=== PATIENT | female | born 1965 | race Hispanic/Latino ===

== ENCOUNTER 2018-09-08 01:25 | Emergency (ER) | payer OTHER ==
[2018-09-08 02:16] LABS: APPEARANCE,URINE Clear (CLEAR); BILIRUBIN,URINE Negative (NEGATIVE); COLOR,URINE Yellow (YELLOW); GLUCOSE, URINE (UA) >=1000 mg/dL (NEGATIVE); KETONES,URINE Negative (NEGATIVE); LEUKOCYTE ESTERASE ,URINE Small (NEGATIVE); NITRATE,URINE Negative (NEGATIVE); OCCULT BLOOD,URINE Small (NEGATIVE); PROTEIN,URINE Negative (NEGATIVE)
[2018-09-08 02:28] LABS: BASOPHILS % (AUTO) 0.8 % (0.0-5.0); EOSINOPHILS % (AUTO) 1.6 % (0.0-8.0); HEMATOCRIT 44.1 % (36-48); LYMPHOCYTES % (AUTO) 23.8 % (21.0-51.0); MEAN CORPUSCULAR HEMOGLOBIN 29.4 pg (27.0-33.0); MEAN CORPUSCULAR HGB CONC 34.5 g/dL (32.0-36.0); MEAN CORPUSCULAR VOLUME 85.2 fL (79-99); MONOCYTES % (AUTO) 5.7 % (3.0-13.0); NEUTROPHILS % (AUTO) 68.1 % (40.0-77.0); NUCLEATED RED BLOOD CELLS 0.2 % (0.0-0.19); PLATELET COUNT (AUTO) 287 K/uL (130-400); RED BLOOD CELL COUNT(AUTO) 5.18 MIL/uL (4.00-5.50); RED CELL DISTRIBUTION WIDTH 13.6 % (11.0-15.5); WHITE BLOOD COUNT (AUTO) 11.4 K/uL (4.8-10.8)
[2018-09-08 02:33] LABS: BACTERIA,URINE Few /HPF (None Seen); YEAST,URINE BUDDING Moderate /HPF (None Seen)
[2018-09-08 02:40] LABS: ALBUMIN 3.6 g/dL (3.5-5.0); BILIRUBIN,TOTAL 0.8 mg/dL (0.2-1.0); CREATININE 0.7 mg/dL (0.5-1.5); POTASSIUM 3.2 mmol/L (3.5-5.1); TOTAL PROTEIN, SERUM 7.7 g/dL (6.0-8.3)
[2018-09-08] MEDS ORDERED: POTASSIUM CHLORIDE 10% ELIXIR 20 MEQ/15 ML UDCUP ONE (03:01)
[2018-09-08] MEDS ORDERED: INSULIN HUMULIN R 100 UNIT/ML 3ML ONE (03:02)
[2018-09-08] MEDS ORDERED: POTASSIUM CHLORIDE 20 MEQ ERTAB PO ONE (03:05)
[2018-09-08] MEDS ORDERED: ACETAMINOPHEN EXTRA STRENGTH 500 MG TABLET ONE (03:19)
[2018-09-08] MEDS ORDERED: CEFTRIAXONE SODIUM 1 GM ONE (03:19)
== END 2018-09-08 05:56 | disposition home or self-care (01) ==
LOC: EDH 01:25
DX: N30.00 Acute cystitis without hematuria (principal); E11.65 Type 2 diabetes mellitus with hyperglycemia; E87.6 Hypokalemia; M54.41 Lumbago with sciatica, right side; Z79.4 Long term (current) use of insulin; Z90.710 Acquired absence of both cervix and uterus
CPT/HCPCS: 36415; 80053; 81001; 82948; 85025; 87088; 96361; 96374; 96375; 99283; J0696; J1815

== ENCOUNTER 2020-05-04 15:15 | Inpatient (IN) | payer OTHER ==
[~2020-05-04] VITALS: Ht 154.9 cm; Wt 42.2 kg
[2020-05-04 15:47] LABS: BASOPHILS % (AUTO) 0.6 % (0.0-5.0); EOSINOPHILS % (AUTO) 0.4 % (0.0-8.0); HEMATOCRIT 34.9 % (36-48); LYMPHOCYTES % (AUTO) 5.6 % (21.0-51.0); MEAN CORPUSCULAR HEMOGLOBIN 26.9 pg (27.0-33.0); MEAN CORPUSCULAR HGB CONC 33.8 g/dL (32.0-36.0); MEAN CORPUSCULAR VOLUME 79.5 fL (79-99); MONOCYTES % (AUTO) 3.8 % (3.0-13.0); PLATELET COUNT (AUTO) 349 K/uL (130-400); RED BLOOD CELL COUNT(AUTO) 4.39 MIL/uL (4.00-5.50); RED CELL DISTRIBUTION WIDTH 12.6 % (11.0-15.5)
[2020-05-04 16:03] LABS: INR 0.92 (0.85-1.15); PARTIAL THROMBOPLASTIN TIME 31.3 SEC (26.3-35.5)
[2020-05-04] MEDS ORDERED: ONDANSETRON HCL 4 MG/2 ML VIAL ONE (16:42)
[2020-05-04] MEDS ORDERED: SODIUM CHLORIDE 0.9% 1000ML 1,000 ML IV ONE (16:43)
[2020-05-04] MEDS ORDERED: SODIUM CHLORIDE 0.9% 250 ML IV ONE (16:43)
[2020-05-04] MEDS ORDERED: HYDRALAZINE HCL 20 MG/ML VIAL IV PRN (16:45)
[2020-05-04] MEDS ORDERED: ONDANSETRON HCL 4 MG/2 ML VIAL IVP PRN (16:45)
[2020-05-04] MEDS ORDERED: ACETAMINOPHEN 325 MG TAB PO PRN (16:45)
[2020-05-04] MEDS ORDERED: ACETAMINOPHEN-CODEINE 300/30MG TAB PO PRN (16:45)
[2020-05-04 16:47] LABS: ASPARTATE AMINOTRANSFERASE 7 U/L (10-37); BILIRUBIN,TOTAL 0.6 mg/dL (0.2-1.0); CARBON DIOXIDE 26 mmol/L (21-32); CREATINE KINASE, TOTAL 14 U/L (21-232); CREATININE 1.2 mg/dL (0.5-1.5); GLOMERULAR FILTR. RATE CALC 50 mL/min (>60); MYOGLOBIN 26 ng/mL (10-92); SODIUM SERUM 124 mmol/L (136-145); TOTAL PROTEIN, SERUM 8.1 g/dL (6.0-8.3); TROPONIN I < 0.04 ng/mL (0.00-0.06); UREA NITROGEN, BLOOD 6 mg/dL (7-18)
[2020-05-04 16:49] LABS: ALANINE AMINOTRANSFERASE < 6 U/L (12-78)
[2020-05-04 16:50] LABS: POTASSIUM 1.7 mmol/L (3.5-5.1)
[2020-05-04 16:51] LABS: CHLORIDE 84 mmol/L (101-111); GLUCOSE,RANDOM 547 mg/dL (70-105)
[2020-05-04] MEDS ORDERED: POTASSIUM BICARB/CIT AC 25 MEQ TABLET.EFF ONE (17:00)
[2020-05-04] MEDS ORDERED: ZOSYN 3.375GM+NS 50ML 50 ML IV ONE (17:00)
[2020-05-04] MEDS ORDERED: POTASSIUM CHLORIDE 20MEQ/100ML 100 ML IV ONE (17:00)
[2020-05-04] MEDS ORDERED: INSULIN HUMULIN R 100 UNIT/ML 3ML ONE (17:19)
[2020-05-04] MEDS ORDERED: VANCOMYCIN 1GM+NS 250ML 250 ML IV ONE (18:00)
[2020-05-04 18:20] VITALS: BP 107/72
[2020-05-04] MEDS ORDERED: GLUCAGON 1MG KIT 1 MG ML IM PRN (19:30)
[2020-05-04] MEDS ORDERED: DEXTROSE 50%-WATER 50 ML DISP.SYRIN IV PRN (19:30)
[2020-05-04] MEDS ORDERED: SULF1TAB89 PO (19:39)
[2020-05-04] MEDS ORDERED: LEVO88TA7 PO (19:39)
[2020-05-04] MEDS ORDERED: INSLAN SQ (19:40)
[2020-05-04] MEDS ORDERED: POTASSIUM CHLORIDE 10% ELIXIR 20 MEQ/15 ML UDCUP PO PRN (19:45)
[2020-05-04] MEDS ORDERED: POTASSIUM CHLORIDE 20 MEQ ERTAB PO PRN (19:45)
[2020-05-04] MEDS ORDERED: VANCOMYCIN PROTOCOL PER PHARMACY IV SCH (20:00)
[2020-05-04] MEDS: NS-20 MEQ KCL 1000ML 1,000 ML IV SCH (20:08)
[2020-05-04] MEDS ORDERED: VANCOMYCIN 750MG + NS 250 ML IV ONE ×2 (20:30)
[2020-05-04] MEDS ORDERED: COMPOUND IV REFRIGERATED 1 EACH IVSOLN MISC PRN (20:30)
--- NOTE | 2020-05-04 20:53 | NUR ---
ROUND DR. APONTE HERE AT BEDSIDE, TO CLEAN WOUND LEFT FOOT, CULTURE OBTAINED TO LEFT FOOT WOUND BY DR. APONTE, LABELED AND SENT TO LAB
--- NOTE | 2020-05-04 21:00 | NUR ---
abnormal lab consult dr. sarmiento in the am per dr. de la cruz, per dr. de la cruz he already called dr. sarmiento himself, informed dr de la cruz K+ level was 1.7 on admission and repeat 2.7, will continue to cover per protocal
[2020-05-04 21:01] LABS: CREATININE 1.1 mg/dL (0.5-1.5)
[2020-05-04] MEDS: MORPHINE SULFATE 2 MG/ML 1ML SYG IVP PRN (21:01)
[2020-05-04 21:04] LABS: POTASSIUM 2.7 mmol/L (3.5-5.1)
[2020-05-04] MEDS: INSULIN HUMULIN R 100 UNIT/ML 3ML SQ SCH (21:15)
[2020-05-04] MEDS: POTASSIUM CHLORIDE 20MEQ/100ML 100 ML IV PRN (21:26)
[2020-05-04] MEDS: LIDOCAINE HCL-MPF 1% 2ML VIAL IV PRN (21:26)
[2020-05-04 23:53] VITALS: BP 99/67
[2020-05-05] MEDS: POTASSIUM CHLORIDE 20MEQ/100ML 100 ML IV PRN ×2 (00:56→06:15)
[2020-05-05] MEDS: LIDOCAINE HCL-MPF 1% 2ML VIAL IV PRN ×2 (00:57→06:15)
[2020-05-05] MEDS: MAGNESIUM 2GM PREMIX 50ML 50 ML IV PRN (01:12)
[2020-05-05] MEDS: MORPHINE SULFATE 2 MG/ML 1ML SYG IVP PRN ×2 (03:40→22:13)
[2020-05-05 04:00] VITALS: BP 99/66
[2020-05-05 04:02] LABS: APPEARANCE,URINE Cloudy (CLEAR); BILIRUBIN,URINE Negative (NEGATIVE); COLOR,URINE Yellow (YELLOW); GLUCOSE, URINE (UA) >=1000 mg/dL (NEGATIVE); KETONES,URINE >=80 mg/dL (NEGATIVE); LEUKOCYTE ESTERASE ,URINE Moderate (NEGATIVE); NITRATE,URINE Positive (NEGATIVE); OCCULT BLOOD,URINE Trace (NEGATIVE); PROTEIN,URINE POS 1+ mg/dL (NEGATIVE); UROBILINOGEN,URINE 0.2 mg/dL (0.2-1.0)
[2020-05-05 04:17] LABS: BACTERIA,URINE Few /HPF (None Seen); MUCUS,URINE Few LPF (None Seen); SQUAMOUS EPITHELIAL CELL,UR Few /HPF (0-2); WBC,URINE 26-50 /HPF (0-1)
[2020-05-05 05:33] LABS: BASOPHILS % (AUTO) 0.6 % (0.0-5.0); EOSINOPHILS % (AUTO) 0.9 % (0.0-8.0); HEMATOCRIT 29.7 % (36-48); LYMPHOCYTES % (AUTO) 11.1 % (21.0-51.0); MEAN CORPUSCULAR HEMOGLOBIN 26.9 pg (27.0-33.0); MEAN CORPUSCULAR HGB CONC 34.7 g/dL (32.0-36.0); MEAN CORPUSCULAR VOLUME 77.5 fL (79-99); MONOCYTES % (AUTO) 5.9 % (3.0-13.0); NEUTROPHILS % (AUTO) 80.6 % (40.0-77.0); PLATELET COUNT (AUTO) 279 K/uL (130-400); RED BLOOD CELL COUNT(AUTO) 3.83 MIL/uL (4.00-5.50); RED CELL DISTRIBUTION WIDTH 12.4 % (11.0-15.5); WHITE BLOOD COUNT (AUTO) 19.9 K/uL (4.8-10.8)
[2020-05-05] MEDS: INSULIN HUMULIN R 100 UNIT/ML 3ML SQ SCH ×4 (05:41→20:59)
[2020-05-05 06:02] LABS: ALBUMIN 1.7 g/dL (3.5-5.0); ASPARTATE AMINOTRANSFERASE 7 U/L (10-37); BILIRUBIN,TOTAL 0.2 mg/dL (0.2-1.0); CARBON DIOXIDE 31 mmol/L (21-32); CHLORIDE 95 mmol/L (101-111); CREATININE 0.9 mg/dL (0.5-1.5); GLOMERULAR FILTR. RATE CALC 70 mL/min (>60); GLUCOSE,RANDOM 76 mg/dL (70-105); SODIUM SERUM 130 mmol/L (136-145); TOTAL PROTEIN, SERUM 6.9 g/dL (6.0-8.3); UREA NITROGEN, BLOOD 6 mg/dL (7-18)
[2020-05-05 06:09] LABS: ALANINE AMINOTRANSFERASE < 6 U/L (12-78)
[2020-05-05 06:10] LABS: POTASSIUM 2.8 mmol/L (3.5-5.1)
[2020-05-05 07:57] VITALS: BP 102/67
[2020-05-05] MEDS: VANCOMYCIN 500MG+NS 100ML 100 ML IV SCH ×2 (09:43→22:05)
[2020-05-05] MEDS: ENOXAPARIN SODIUM 30 MG/0.3 ML SQ SCH (09:44)
[2020-05-05] MEDS: AMILORIDE HCL 5 MG TABLET PO SCH (09:44)
[2020-05-05] MEDS: NS-20 MEQ KCL 1000ML 1,000 ML IV SCH (10:01)
[2020-05-05] MEDS ORDERED: RENAL DOSE IV SCH (10:45)
[2020-05-05 11:27] VITALS: BP 126/75
--- NOTE | 2020-05-05 12:58 | NUR ---
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 Pt has a BMI of 13.4 classified as protein energy malnutrition stage III. Pt stated her usual weight is of 94 lbs. Pt's current weight is of 70 lbs. This indicates a 75% UBW signifying severe malnutrition. 67% IBW indicating severe malnutrition. Prior to admission pt stated she was nauseated and vomiting for 1 week with poor PO intake. Pt was unable to define when unintentional weight loss started. When RD visited, pt was starting to eat lunch tray. Pt was noted to be weak and needed assistance with opening condiment packages. Pt has signs of moderate-severe malnutrition as evidence of nutrition focused physical assessment of moderate-severe muscle and fat wasting, as well as %UBW, and %IBW. RD RECOMMENDATION: 75 gm CC diet. BG on admission were of 547. Monitor BG. Glucerna TID ProMod 60 mL BID Monitor PO intake and tolerance to ONS. LABS: WBC 19.9, NA 130, K 2.8, CL 95, BUN 6, BG 74, TOT CA 7.4, MG 2.8, ALB 1.7 LBM: 05/03/20 Addendum: 05/05/20 at [address] Amended: Links added.
--- NOTE | 2020-05-05 13:00 | NUR ---
Rayne HANNA DR. TO SEE PATIENT AT BEDSIDE WILL WAIT TIL LABS ARE UNDER CONTROL
--- NOTE | 2020-05-05 15:00 | NUR ---
MET W PATIENT AT BEDSIDE FOR DC PLANNING PATIENT STATES LIVES WITH SPOUSE KATHY WHO WILL PROVIDE TRANSPORT STATES THAT PREVIOUS TO AUGUST WAS EMPLOYED WITH [employer] FOR > 20 EYARS, HAS FOOT ISSUES ON RIGHT FOOT, WAS OFF WORK, WAS FIRED AFTER [employer] RAN OUT, STATES NO COBRA OFFIERS, STATES DID NOT HAVE INSURANCE TO LOOK AFTER HER FEET, NOW HERE WITH PROBLEMS WITH OTHER FOOT, WILL NEED SPOUSE TO DO DRESSING CHANGES, WAITING ON CULTURS FOR ABX NEEDS. DCP HOME. HAC /RAFAT SKINNER ALERTED RE NEED FOR SSI/DISABLITY CASE ARMOR OFFICER STATES PATIENT VOICES FEELINGS OF DISCOURAGEMENT AND SADNESS RELATED TO DOMESTIC DISCORD. WILL F/UP - POSS SW CONSULT Addendum: 05/06/20 at 1134 by PORFIRIO WHITLOCK RN CM Amended: Links added.
[2020-05-05 15:11] LABS: HEMATOCRIT 28.6 % (36-48); MEAN CORPUSCULAR HEMOGLOBIN 27.3 pg (27.0-33.0); MEAN CORPUSCULAR HGB CONC 34.3 g/dL (32.0-36.0); MEAN CORPUSCULAR VOLUME 79.7 fL (79-99); RED BLOOD CELL COUNT(AUTO) 3.59 MIL/uL (4.00-5.50); RED CELL DISTRIBUTION WIDTH 12.8 % (11.0-15.5); WHITE BLOOD COUNT (AUTO) 18.5 K/uL (4.8-10.8)
[2020-05-05 15:27] LABS: CREATININE 0.8 mg/dL (0.5-1.5); MAGNESIUM 2.1 mg/dL (1.80-2.40); POTASSIUM 3.3 mmol/L (3.5-5.1)
[2020-05-05 15:52] VITALS: BP 112/73
--- NOTE | 2020-05-05 16:18 | NUR ---
DR. GUS V CAME TO SEE PATIENT AT BEDSIDE AND SPOKE TO PATIENT ABOUT PROCEDURE OF LEFT FOOT AMPUTATION. HOWEVER, PATIENT WANTED TO THINK ABOUT LEFT FOOT BEING AMPUTATED. DR. WEBER WILL WAIT ON PATIENT DECISION.
[2020-05-05 20:40] VITALS: BP 111/69
[2020-05-05] MEDS: NYSTATIN-TRIAMCINOLONE CREAM 15 GM TP SCH (21:00)
[2020-05-05 23:05] VITALS: BP 127/79
[2020-05-06] MEDS: NS-20 MEQ KCL 1000ML 1,000 ML IV SCH ×2 (00:23→11:42)
[2020-05-06 03:07] VITALS: BP 92/59
[2020-05-06 05:32] LABS: MEAN CORPUSCULAR HEMOGLOBIN 26.7 pg (27.0-33.0); MEAN CORPUSCULAR HGB CONC 33.1 g/dL (32.0-36.0); MEAN CORPUSCULAR VOLUME 80.6 fL (79-99); RED BLOOD CELL COUNT(AUTO) 3.6 MIL/uL (4.00-5.50); RED CELL DISTRIBUTION WIDTH 13.1 % (11.0-15.5); WHITE BLOOD COUNT (AUTO) 15.3 K/uL (4.8-10.8)
[2020-05-06 05:45] LABS: CREATININE 0.7 mg/dL (0.5-1.5); MAGNESIUM 1.9 mg/dL (1.80-2.40); POTASSIUM 3.7 mmol/L (3.5-5.1)
[2020-05-06] MEDS: INSULIN HUMULIN R 100 UNIT/ML 3ML SQ SCH ×6 (06:19→21:39)
--- NOTE | 2020-05-06 06:44 | NUR ---
DR. FAY APONTE IN TO SEE PATIENT AND CHANGE WOUND DRESSING OF LEFT FOOT. DR. APONTE EXPLAINED TO PATIENT THAT HER WOUND WOULD NOT LIKELY HEAL DUE TO LACK OF CIRCULATION TO LEFT LOWER LEG AND RISK OF INFECTION SPREADING. 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 DR. WEBER'S OFFICE PAGED TO NOTIFY HIM THAT PATIENT AGREED TO HAVE OPERATION. OFFICE STATED THEY WOULD NOTIFY HIM DURING OFFICE HOURS BECAUSE DR. WEBER WAS NOT INTERIOR WALL ASSEMBLER. WILL ASK ONCOMING NURSE TO FOLLOW UP
--- NOTE | 2020-05-06 07:43 | NUR ---
CALL BACK FROM DR. WEBER RECEIVED CALL BACK FROM DR. GUS MD MADE AWARE THAT PATIENT NOW AGREES TO HAVE LEFT BELOW THE KNEE AMPUTATION. STATED TO SCHEDULE PROCEDURE FOR 05/07/20.
[2020-05-06 08:00] VITALS: BP 91/64
[2020-05-06] MEDS: AMILORIDE HCL 5 MG TABLET PO SCH ×2 (09:00→09:08)
[2020-05-06] MEDS: ENOXAPARIN SODIUM 30 MG/0.3 ML SQ SCH ×2 (09:00→09:08)
[2020-05-06] MEDS: NYSTATIN-TRIAMCINOLONE CREAM 15 GM TP SCH ×2 (09:00→21:39)
[2020-05-06] MEDS: VANCOMYCIN 500MG+NS 100ML 100 ML IV SCH ×2 (09:09→21:26)
--- NOTE | 2020-05-06 09:15 | NUR ---
Surgery scheduled for tomorrow AM Pt NPO. Pills held this am. Lovenox held for pending surgery tomorrow AM
[2020-05-06] MEDS ORDERED: DRONABINOL 2.5 MG CAP PO SCH (10:00)
[2020-05-06] MEDS ORDERED: RENAL DOSE IV SCH (10:00)
[2020-05-06] MEDS: ZINC SULFATE 220 CAPSULE PO SCH (10:30)
[2020-05-06] MEDS: ASCORBIC ACID 500 MG TAB PO SCH (10:30)
[2020-05-06] MEDS: THIAMINE HCL 100 MG/ML 2ML VIAL IVP SCH (10:49)
--- NOTE | 2020-05-06 11:43 | NUR ---
PT NPO FOR CTA
[2020-05-06 12:00] VITALS: BP 93/63
[2020-05-06] MEDS ORDERED: IOHEXOL-350 50ML VIAL IV ONE (12:52)
[2020-05-06] MEDS ORDERED: IOHEXOL-350 75 ML VIAL IV ONE (12:53)
--- NOTE | 2020-05-06 13:02 | NUR ---
PT TO CTA AT THIS TIME. NAD
[2020-05-06] MEDS: ZOSYN 3.375GM+NS 50ML 50 ML IV SCH ×2 (13:52→21:26)
--- NOTE | 2020-05-06 14:10 | NUR ---
CLARIFICATION OF PRIMARY PHYSICIAN T/C PLACED TO DR. PINEDA'S OFFICE SPOKE WITH ISSAC, INFORMED HER THAT PATIENT STATES SHE SAW DR. PINEDA IN AUGUST AND WANTS TO CONTINUE TO SEE HIM HER PRIMARY PHYSICIAN.
[2020-05-06 16:00] VITALS: BP 121/79
[2020-05-06 19:30] VITALS: BP 103/66
[2020-05-06] MEDS ORDERED: DRONABINOL 2.5 MG CAP PO ONE (21:00)
[2020-05-06] MEDS: INSULIN GLARGINE 100 UNITS/ML 10 ML VIAL SQ SCH (21:37)
[2020-05-06] MEDS: MORPHINE SULFATE 2 MG/ML 1ML SYG IVP PRN (21:55)
[2020-05-06 23:45] VITALS: BP 95/65
[2020-05-07] VITALS (16 sets, daily range): BP systolic 89–136; BP diastolic 54–78
[2020-05-07] MEDS: NS-20 MEQ KCL 1000ML 1,000 ML IV SCH ×2 (00:50→12:53)
--- NOTE | 2020-05-07 05:08 | NUR ---
PATIENT RESTING IN BED. TOLERATING IV ABX WELL. NO RESPIRATORY DISTRESS NOTED. DID C/O PAIN TO LLE. MEDICATED ONCE WITH ORDERED PAIN MED. PATIENT IS NPO FOR BKA IN AM. WILL CONTINUE TO MONITOR.
[2020-05-07] MEDS: INSULIN HUMULIN R 100 UNIT/ML 3ML SQ SCH ×7 (06:05→20:45)
[2020-05-07] MEDS: ZOSYN 3.375GM+NS 50ML 50 ML IV SCH (06:15)
[2020-05-07] MEDS: LEVOTHYROXINE 50 MCG TABLET PO SCH (06:16)
[2020-05-07 06:22] LABS: BASOPHILS % (AUTO) 0.3 % (0.0-5.0); EOSINOPHILS % (AUTO) 0.7 % (0.0-8.0); HEMATOCRIT 27.3 % (36-48); LYMPHOCYTES % (AUTO) 17.6 % (21.0-51.0); MEAN CORPUSCULAR HEMOGLOBIN 26.8 pg (27.0-33.0); MEAN CORPUSCULAR VOLUME 81.3 fL (79-99); MONOCYTES % (AUTO) 6.8 % (3.0-13.0); PLATELET COUNT (AUTO) 234 K/uL (130-400); RED BLOOD CELL COUNT(AUTO) 3.36 MIL/uL (4.00-5.50); RED CELL DISTRIBUTION WIDTH 13.2 % (11.0-15.5); WHITE BLOOD COUNT (AUTO) 15.2 K/uL (4.8-10.8)
[2020-05-07 06:46] LABS: ALBUMIN 1.3 g/dL (3.5-5.0); BILIRUBIN,TOTAL 0.2 mg/dL (0.2-1.0); CREATININE 0.7 mg/dL (0.5-1.5); CRP QUANTITATIVE 82.6 mg/L (0.00-9.0); MAGNESIUM 1.7 mg/dL (1.80-2.40); PHOSPHORUS 1.3 mg/dL (2.5-4.9); POTASSIUM 3.4 mmol/L (3.5-5.1); TOTAL PROTEIN, SERUM 5.9 g/dL (6.0-8.3)
[2020-05-07 07:36] LABS: ERYTHROCYTE SEDIMENTATION RATE 109 MM/HR (0-30)
[2020-05-07 08:03] LABS: INR 0.94 (0.85-1.15); PROTHROMBIN TIME 10.2 SEC (9.6-11.6)
[2020-05-07] MEDS ORDERED: ROPIVACAINE 0.5% 5MG/ML 30ML IJ ONE (08:45)
[2020-05-07] MEDS ORDERED: PROPOFOL 1000 MG/100 ML 100 ML IV ONE (08:45)
[2020-05-07] MEDS ORDERED: KETAMINE 50MG/ML SYRINGE 50 MG/ML DISP.SYRIN IV ONE (08:46)
[2020-05-07] MEDS: VANCOMYCIN 1GM+NS 250ML 250 ML IV SCH ×2 (08:59→10:00)
[2020-05-07] MEDS ORDERED: MIDAZOLAM HCL 1 MG/ML 2ML VIAL ONE (09:00)
[2020-05-07] MEDS ORDERED: ONDANSETRON HCL 4 MG/2 ML VIAL ONE (09:00)
[2020-05-07] MEDS ORDERED: EPHEDRINE SULFATE 50 MG/ML AMPULE ONE (09:00)
[2020-05-07] MEDS: ENOXAPARIN SODIUM 30 MG/0.3 ML SQ SCH (09:00)
[2020-05-07] MEDS: ACETAMINOPHEN EXTRA STRENGTH 500 MG TABLET PO SCH ×2 (10:30→18:10)
--- NOTE | 2020-05-07 11:55 | NUR ---
PT BACK FROM SURGERY OF A LEFT BKA. CLEAN DRESSING, NO ACTIVE BLEEDING, SAADIA DRAIN IN PLACE DRAINING SANGUINEOUS FLUID. NO PAIN AT THE MOMENT, V/S STABLE.
[2020-05-07] MEDS: NYSTATIN-TRIAMCINOLONE CREAM 15 GM TP SCH ×2 (12:39→21:01)
[2020-05-07] MEDS: ASCORBIC ACID 500 MG TAB PO SCH (12:48)
[2020-05-07] MEDS: ZINC SULFATE 220 CAPSULE PO SCH (12:49)
[2020-05-07] MEDS: THIAMINE HCL 100 MG/ML 2ML VIAL IVP SCH (12:49)
[2020-05-07] MEDS: LEVOFLOXACIN 750 MG/D5W 150 ML 150 ML IV SCH (12:49)
[2020-05-07] MEDS: AMILORIDE HCL 5 MG TABLET PO SCH (12:49)
[2020-05-07] MEDS: Vitamin B Complex/Vit C/Folic Acid PO SCH (12:49)
--- NOTE | 2020-05-07 15:34 | NUR ---
AFTER EVALUATION PER CARDIOLOGY STAND POINT PT IS CLEAR.
[2020-05-07] MEDS: INSULIN GLARGINE 100 UNITS/ML 10 ML VIAL SQ SCH (20:46)
[2020-05-07] MEDS: NYSTATIN 15 GM POWDER TP PRN (20:47)
[2020-05-07] MEDS ORDERED: VANCOMYCIN 500MG+NS 100ML 100 ML IV SCH (21:00)
[2020-05-07] MEDS: MAGNESIUM 2GM PREMIX 50ML 50 ML IV PRN (22:30)
[2020-05-08] VITALS (7 sets, daily range): BP systolic 83–145; BP diastolic 59–64
[2020-05-08] MEDS: ACETAMINOPHEN EXTRA STRENGTH 500 MG TABLET PO SCH ×3 (02:30→17:05)
[2020-05-08] MEDS: NS-20 MEQ KCL 1000ML 1,000 ML IV SCH ×2 (03:35→16:50)
[2020-05-08] MEDS: LEVOTHYROXINE 50 MCG TABLET PO SCH (05:47)
[2020-05-08 06:12] LABS: BASOPHILS % (AUTO) 0.4 % (0.0-5.0); EOSINOPHILS % (AUTO) 0.7 % (0.0-8.0); HEMATOCRIT 26.1 % (36-48); LYMPHOCYTES % (AUTO) 20.8 % (21.0-51.0); MEAN CORPUSCULAR HEMOGLOBIN 27.4 pg (27.0-33.0); MEAN CORPUSCULAR HGB CONC 33.3 g/dL (32.0-36.0); MEAN CORPUSCULAR VOLUME 82.3 fL (79-99); MONOCYTES % (AUTO) 8.3 % (3.0-13.0); NEUTROPHILS % (AUTO) 69.3 % (40.0-77.0); PLATELET COUNT (AUTO) 231 K/uL (130-400); RED BLOOD CELL COUNT(AUTO) 3.17 MIL/uL (4.00-5.50); RED CELL DISTRIBUTION WIDTH 13.4 % (11.0-15.5); WHITE BLOOD COUNT (AUTO) 13.1 K/uL (4.8-10.8)
[2020-05-08] MEDS: INSULIN HUMULIN R 100 UNIT/ML 3ML SQ SCH ×7 (06:32→21:00)
[2020-05-08 07:18] LABS: ALBUMIN 1.3 g/dL (3.5-5.0); ASPARTATE AMINOTRANSFERASE 11 U/L (10-37); BILIRUBIN,TOTAL 0.1 mg/dL (0.2-1.0); CARBON DIOXIDE 27 mmol/L (21-32); CHLORIDE 101 mmol/L (101-111); CREATININE 0.6 mg/dL (0.5-1.5); GLOMERULAR FILTR. RATE CALC 111 mL/min (>60); GLUCOSE,RANDOM 298 mg/dL (70-105); POTASSIUM 3.6 mmol/L (3.5-5.1); SODIUM SERUM 134 mmol/L (136-145); TOTAL PROTEIN, SERUM 5.8 g/dL (6.0-8.3); UREA NITROGEN, BLOOD 13 mg/dL (7-18)
[2020-05-08 07:24] LABS: ALANINE AMINOTRANSFERASE < 6 U/L (12-78)
[2020-05-08] MEDS: THIAMINE HCL 100 MG/ML 2ML VIAL IVP SCH (09:38)
[2020-05-08] MEDS: ASCORBIC ACID 500 MG TAB PO SCH (09:38)
[2020-05-08] MEDS: ZINC SULFATE 220 CAPSULE PO SCH (09:38)
[2020-05-08] MEDS: AMILORIDE HCL 5 MG TABLET PO SCH (09:38)
[2020-05-08] MEDS: ENOXAPARIN SODIUM 30 MG/0.3 ML SQ SCH (09:38)
[2020-05-08] MEDS: Vitamin B Complex/Vit C/Folic Acid PO SCH (09:38)
[2020-05-08] MEDS: NYSTATIN 15 GM POWDER TP PRN ×2 (09:40→20:46)
[2020-05-08] MEDS: NYSTATIN-TRIAMCINOLONE CREAM 15 GM TP SCH ×2 (09:44→20:49)
[2020-05-08] MEDS: LEVOFLOXACIN 750 MG/D5W 150 ML 150 ML IV SCH (13:12)
--- NOTE | 2020-05-08 17:52 | NUR ---
DR JEREZ SURGEON EVALUATED THE PT BEDSIDE AND VERBALIZED HE WILL REMOVE THE SAADIA DRAIN TOMORROW AND PT WILL BE CLEAR FROM SURGERY STAND POINT.
[2020-05-08] MEDS: FAMOTIDINE 20MG TAB 20 MG TAB PO SCH (20:45)
[2020-05-08] MEDS: INSULIN GLARGINE 100 UNITS/ML 10 ML VIAL SQ SCH (21:45)
[2020-05-09] MEDS: ACETAMINOPHEN EXTRA STRENGTH 500 MG TABLET PO SCH ×3 (01:38→17:30)
[2020-05-09 04:10] VITALS: BP 83/54
[2020-05-09 05:58] LABS: BASOPHILS % (AUTO) 0.6 % (0.0-5.0); HEMATOCRIT 25.4 % (36-48); LYMPHOCYTES % (AUTO) 15.9 % (21.0-51.0); MEAN CORPUSCULAR HEMOGLOBIN 26.9 pg (27.0-33.0); MEAN CORPUSCULAR HGB CONC 32.7 g/dL (32.0-36.0); MEAN CORPUSCULAR VOLUME 82.2 fL (79-99); MONOCYTES % (AUTO) 8.4 % (3.0-13.0); NEUTROPHILS % (AUTO) 73.6 % (40.0-77.0); PLATELET COUNT (AUTO) 239 K/uL (130-400); RED BLOOD CELL COUNT(AUTO) 3.09 MIL/uL (4.00-5.50); RED CELL DISTRIBUTION WIDTH 13.9 % (11.0-15.5)
[2020-05-09 06:19] LABS: ALBUMIN 1.3 g/dL (3.5-5.0); ASPARTATE AMINOTRANSFERASE 14 U/L (10-37); BILIRUBIN,TOTAL 0.1 mg/dL (0.2-1.0); CARBON DIOXIDE 27 mmol/L (21-32); CHLORIDE 101 mmol/L (101-111); CREATININE 0.6 mg/dL (0.5-1.5); GLOMERULAR FILTR. RATE CALC 111 mL/min (>60); GLUCOSE,RANDOM 200 mg/dL (70-105); POTASSIUM 4.1 mmol/L (3.5-5.1); SODIUM SERUM 131 mmol/L (136-145); TOTAL PROTEIN, SERUM 6.2 g/dL (6.0-8.3); UREA NITROGEN, BLOOD 13 mg/dL (7-18)
[2020-05-09 06:29] LABS: ALANINE AMINOTRANSFERASE < 6 U/L (12-78)
[2020-05-09] MEDS: LEVOTHYROXINE 50 MCG TABLET PO SCH (06:41)
[2020-05-09] MEDS: INSULIN HUMULIN R 100 UNIT/ML 3ML SQ SCH ×7 (07:04→20:33)
[2020-05-09 08:05] VITALS: BP 104/65
[2020-05-09] MEDS: ZINC SULFATE 220 CAPSULE PO SCH (09:11)
[2020-05-09] MEDS: HYDROCODONE/ACETAMINOPHEN 5/325 MG TAB PO PRN (09:11)
[2020-05-09] MEDS: THIAMINE HCL 100 MG/ML 2ML VIAL IVP SCH (09:11)
[2020-05-09] MEDS: ASCORBIC ACID 500 MG TAB PO SCH (09:11)
[2020-05-09] MEDS: FAMOTIDINE 20MG TAB 20 MG TAB PO SCH ×2 (09:11→20:32)
[2020-05-09] MEDS: AMILORIDE HCL 5 MG TABLET PO SCH (09:11)
[2020-05-09] MEDS: Vitamin B Complex/Vit C/Folic Acid PO SCH (09:11)
[2020-05-09] MEDS: NYSTATIN-TRIAMCINOLONE CREAM 15 GM TP SCH ×2 (09:12→20:36)
[2020-05-09] MEDS: ENOXAPARIN SODIUM 30 MG/0.3 ML SQ SCH (09:12)
[2020-05-09 11:40] VITALS: BP 100/64
[2020-05-09] MEDS: LEVOFLOXACIN 750 MG/D5W 150 ML 150 ML IV SCH (13:00)
--- NOTE | 2020-05-09 14:56 | NUR ---
MET WITH DTR AND PATIENT AT BEDSIDE FOR DC PLANNING PATIENT STATES HAS ROLLING WALKER AND W/CHAIR, THAT SON WILL DO ANY DRESSING CHANGES OR STUMP CARE. DAUGHTER STATES HOME IW VERY TERRI, NOT IN GOOD CONDITIONPatient disagrees, stamary family is cleaning up NO EXPRESSED CONCERNS ABOUT DC PLNANING. ADVISED BOTH [facility] WOULD BE FOLLOWING UP ON THE DISABLITY CLAIM DX BKA Addendum: 05/09/20 at 1501 by PORFIRIO WHITLOCK RN CM Amended: Links added.
[2020-05-09 16:34] VITALS: BP_SYST 86; BP_DIAS 58; BP_DIAS 65
--- NOTE | 2020-05-09 17:16 | NUR ---
RD FOLLOW UP Pt tolerating 75gm CCD with no GI distress, Great PO intake and requesting PM snacks. Pt does not tolerate Glucerna ONS, Pt was willing to continue but causes loose stools. Monitored labs: Alb 1.3, WBC 15.0, Na 131, BG 118, Ca 5.8. Zinc, Vitamin C, Nephrovite, Thiamine, Lantus, Humulin R medications in place. Recommend to discontinue Glucerna ONS and add 60mL ProMod BID. Recommend add PM snacks. RD to continue to monitor.
[2020-05-09 19:58] VITALS: BP 98/65
[2020-05-09] MEDS: GABAPENTIN 300 MG CAPSULE PO SCH (20:32)
[2020-05-09] MEDS: DRONABINOL 2.5 MG CAP PO SCH (20:32)
[2020-05-09] MEDS: INSULIN GLARGINE 100 UNITS/ML 10 ML VIAL SQ SCH (20:34)
[2020-05-09 23:28] VITALS: BP 101/67
[2020-05-10] MEDS: ACETAMINOPHEN EXTRA STRENGTH 500 MG TABLET PO SCH ×3 (02:26→18:30)
[2020-05-10 03:38] VITALS: BP 108/72
[2020-05-10 03:49] LABS: HEMATOCRIT 26.1 % (36-48); MEAN CORPUSCULAR HEMOGLOBIN 27.1 pg (27.0-33.0); MEAN CORPUSCULAR HGB CONC 32.2 g/dL (32.0-36.0); MEAN CORPUSCULAR VOLUME 84.2 fL (79-99); RED BLOOD CELL COUNT(AUTO) 3.1 MIL/uL (4.00-5.50); RED CELL DISTRIBUTION WIDTH 14.5 % (11.0-15.5); WHITE BLOOD COUNT (AUTO) 11.6 K/uL (4.8-10.8)
[2020-05-10 04:09] LABS: ALANINE AMINOTRANSFERASE 6 U/L (12-78); ALBUMIN 1.3 g/dL (3.5-5.0); ASPARTATE AMINOTRANSFERASE 13 U/L (10-37); BILIRUBIN,TOTAL 0.1 mg/dL (0.2-1.0); CARBON DIOXIDE 29 mmol/L (21-32); CHLORIDE 101 mmol/L (101-111); CREATININE 0.8 mg/dL (0.5-1.5); GLOMERULAR FILTR. RATE CALC 80 mL/min (>60); GLUCOSE,RANDOM 259 mg/dL (70-105); PHOSPHORUS 3.7 mg/dL (2.5-4.9); POTASSIUM 5.1 mmol/L (3.5-5.1); SODIUM SERUM 134 mmol/L (136-145); TOTAL PROTEIN, SERUM 6.1 g/dL (6.0-8.3); UREA NITROGEN, BLOOD 14 mg/dL (7-18)
[2020-05-10] MEDS: LEVOTHYROXINE 50 MCG TABLET PO SCH (06:20)
[2020-05-10] MEDS: MAGNESIUM 2GM PREMIX 50ML 50 ML IV PRN (06:20)
[2020-05-10] MEDS: INSULIN HUMULIN R 100 UNIT/ML 3ML SQ SCH ×7 (06:22→20:50)
[2020-05-10 07:30] VITALS: BP 119/79
[2020-05-10] MEDS ORDERED: AMILORIDE HCL 5 MG TABLET PO SCH (09:00)
[2020-05-10] MEDS: ASCORBIC ACID 500 MG TAB PO SCH (10:11)
[2020-05-10] MEDS: Vitamin B Complex/Vit C/Folic Acid PO SCH (10:11)
[2020-05-10] MEDS: FAMOTIDINE 20MG TAB 20 MG TAB PO SCH ×2 (10:11→20:45)
[2020-05-10] MEDS: DULOXETINE HCL 30 MG CAP PO SCH (10:12)
[2020-05-10] MEDS: ZINC SULFATE 220 CAPSULE PO SCH (10:12)
[2020-05-10] MEDS: THIAMINE HCL 100 MG/ML 2ML VIAL IVP SCH (10:12)
[2020-05-10] MEDS: DRONABINOL 2.5 MG CAP PO SCH ×2 (10:12→20:45)
[2020-05-10] MEDS: ENOXAPARIN SODIUM 30 MG/0.3 ML SQ SCH (10:13)
[2020-05-10] MEDS: NYSTATIN-TRIAMCINOLONE CREAM 15 GM TP SCH ×2 (10:13→20:54)
[2020-05-10 11:00] VITALS: BP 106/70
[2020-05-10] MEDS: LEVOFLOXACIN 750 MG/D5W 150 ML 150 ML IV SCH (12:01)
[2020-05-10 16:05] VITALS: BP 91/60
--- NOTE | 2020-05-10 16:12 | NUR ---
SAADIA DRAIN DISCONTINUED TO LEFT BKA, TOLERATED WELL, NO COMPLAINTS OF PAIN
[2020-05-10 19:36] VITALS: BP 106/65
[2020-05-10] MEDS: GABAPENTIN 300 MG CAPSULE PO SCH (20:45)
[2020-05-10] MEDS: INSULIN GLARGINE 100 UNITS/ML 10 ML VIAL SQ SCH (20:49)
[2020-05-10] MEDS: NYSTATIN 15 GM POWDER TP PRN (20:50)
[2020-05-10] MEDS: HYDROCODONE/ACETAMINOPHEN 5/325 MG TAB PO PRN (23:03)
--- NOTE | 2020-05-10 23:03 | NUR ---
PAIN Medicated with Hydrocodone 2 tabs for c/o left stump pain.
[2020-05-10 23:15] VITALS: BP 116/71
[2020-05-11] MEDS: ACETAMINOPHEN EXTRA STRENGTH 500 MG TABLET PO SCH ×3 (02:30→18:34)
[2020-05-11 03:32] VITALS: BP 110/67
[2020-05-11] MEDS: LEVOTHYROXINE 50 MCG TABLET PO SCH (05:44)
[2020-05-11] MEDS: INSULIN HUMULIN R 100 UNIT/ML 3ML SQ SCH ×7 (06:04→20:33)
[2020-05-11 06:08] LABS: BASOPHILS % (AUTO) 0.7 % (0.0-5.0); EOSINOPHILS % (AUTO) 1.4 % (0.0-8.0); HEMATOCRIT 28.1 % (36-48); LYMPHOCYTES % (AUTO) 30.1 % (21.0-51.0); MEAN CORPUSCULAR HEMOGLOBIN 26.6 pg (27.0-33.0); MEAN CORPUSCULAR VOLUME 83.1 fL (79-99); MONOCYTES % (AUTO) 9.9 % (3.0-13.0); PLATELET COUNT (AUTO) 281 K/uL (130-400); RED BLOOD CELL COUNT(AUTO) 3.38 MIL/uL (4.00-5.50); RED CELL DISTRIBUTION WIDTH 14.6 % (11.0-15.5); WHITE BLOOD COUNT (AUTO) 10.7 K/uL (4.8-10.8)
[2020-05-11 06:21] LABS: CREATININE 0.7 mg/dL (0.5-1.5); MAGNESIUM 1.7 mg/dL (1.80-2.40); POTASSIUM 4.5 mmol/L (3.5-5.1)
[2020-05-11] MEDS: MAGNESIUM 2GM PREMIX 50ML 50 ML IV PRN (06:28)
[2020-05-11 08:00] VITALS: BP 89/63
[2020-05-11] MEDS: NYSTATIN-TRIAMCINOLONE CREAM 15 GM TP SCH ×2 (09:00→20:40)
[2020-05-11] MEDS: FAMOTIDINE 20MG TAB 20 MG TAB PO SCH ×2 (09:10→20:32)
[2020-05-11] MEDS: Vitamin B Complex/Vit C/Folic Acid PO SCH (09:10)
[2020-05-11] MEDS: THIAMINE HCL 100 MG/ML 2ML VIAL IVP SCH (09:10)
[2020-05-11] MEDS: ASCORBIC ACID 500 MG TAB PO SCH (09:10)
[2020-05-11] MEDS: ZINC SULFATE 220 CAPSULE PO SCH (09:11)
[2020-05-11] MEDS: DULOXETINE HCL 30 MG CAP PO SCH (09:11)
[2020-05-11] MEDS: DRONABINOL 2.5 MG CAP PO SCH ×2 (09:11→20:32)
[2020-05-11] MEDS: ENOXAPARIN SODIUM 30 MG/0.3 ML SQ SCH (09:11)
--- NOTE | 2020-05-11 11:00 | NUR ---
SPOKE TO PATIENT AT DISCHARGE RE DISCHARGE PLANNING PATIENT FIRST STATED ARE YOU HERE TO TALK ABOUT THE JAIL? THIS CM ADVISED PT CANNOT BE PLACE UNINSURED AT THIS TIME. ADVISED PT THAT WHEN HER INSURANCE STARTS IN JULY SHE CAN GET A PROSTHESIS AND GO FOR THERAPY THEN. PT STATES O YES,, I FORGOT, SOMEONE TOLD ME I SHOULD GO TO A JAIL FOR THERAPY THIS CM STATES THAT A NURSE REPORTED THAT FAMILY NOT IN AGREEMENT WITH THE DISCHARGE PLANB OF HOME AND CM NEEDS TO FOLLOW UP ON THAT PATIENT DISAGREES, STATES THAT HER FAMILY KNOWS SHE IS GOING HOME AND THAT HER SON CAN DO THE DRESSING CHANGES NO OTHER CONCERNS VOICED CM TO FOLLOW
[2020-05-11 12:00] VITALS: BP 84/60
[2020-05-11] MEDS: LEVOFLOXACIN 750 MG/D5W 150 ML 150 ML IV SCH (12:57)
[2020-05-11 16:00] VITALS: BP 116/75
[2020-05-11 20:24] VITALS: BP 97/64
[2020-05-11] MEDS: GABAPENTIN 300 MG CAPSULE PO SCH (20:32)
[2020-05-11] MEDS: INSULIN GLARGINE 100 UNITS/ML 10 ML VIAL SQ SCH (20:35)
[2020-05-12] VITALS (7 sets, daily range): BP systolic 93–129; BP diastolic 58–76
[2020-05-12] MEDS: ACETAMINOPHEN EXTRA STRENGTH 500 MG TABLET PO SCH ×2 (02:30→10:30)
[2020-05-12] MEDS: LEVOTHYROXINE 50 MCG TABLET PO SCH (06:16)
[2020-05-12] MEDS: INSULIN HUMULIN R 100 UNIT/ML 3ML SQ SCH ×7 (06:17→21:09)
[2020-05-12 06:24] LABS: CREATININE 0.9 mg/dL (0.5-1.5); MAGNESIUM 1.7 mg/dL (1.80-2.40); POTASSIUM 4.2 mmol/L (3.5-5.1)
--- NOTE | 2020-05-12 08:00 | NUR ---
PT AAO X 3 REVIEW PLAN OF CARE, UPDATE OF DIS CHARGE PLANNING . DRSG TO HER LEFT BELOW KNEE APUTATION DRY AND CLEAN. CALL LIGHT IN REACH.
[2020-05-12] MEDS: ASCORBIC ACID 500 MG TAB PO SCH (08:35)
[2020-05-12] MEDS: DRONABINOL 2.5 MG CAP PO SCH ×2 (08:35→20:15)
[2020-05-12] MEDS: FAMOTIDINE 20MG TAB 20 MG TAB PO SCH ×2 (08:35→20:14)
[2020-05-12] MEDS: Vitamin B Complex/Vit C/Folic Acid PO SCH (08:35)
[2020-05-12] MEDS: THIAMINE HCL 100 MG/ML 2ML VIAL IVP SCH (08:36)
[2020-05-12] MEDS: DULOXETINE HCL 30 MG CAP PO SCH (08:36)
[2020-05-12] MEDS: ZINC SULFATE 220 CAPSULE PO SCH (08:37)
[2020-05-12] MEDS: ENOXAPARIN SODIUM 30 MG/0.3 ML SQ SCH (08:39)
[2020-05-12] MEDS: NYSTATIN-TRIAMCINOLONE CREAM 15 GM TP SCH ×2 (09:00→20:28)
[2020-05-12] MEDS ORDERED: MAGNESIUM OXIDE 400 MG TABLET PO SCH (15:45)
--- NOTE | 2020-05-12 17:00 | NUR ---
ASK PT REGARDING DRSG CHANGE EDUCATION PRIOR OF GOING HOME, S TATED THAT HER DAUGHTER CAME OUT OF WORK AT 7 PM AND WILL BE DOING HER DRSG CHANGES. REQUIRE EDUCATION TO DRSG CHANGES TO HER LEFT BELOW KNEE AMPUTATION SITE AT PRESENT DENIES ANYH PAIN
--- NOTE | 2020-05-12 17:18 | NUR ---
RD FOLLOW UP Pt continues with 75gm CC diet order with no report of GI distress. Protein supplementation of ProMod BID, pt with snacks/sandwich in place. Monitored labs: Na 135, Ca 6,5m Ng 1.70, CRP 65.30. Lovenox, Zinc, Thiamine, Marinol, Vitamin C, Nephrovite, Humulin R medications in place. Fluid restriction instructions as per . Called Pt due to contact isolation, no answer. Recommend continue current diet order RD to continue to monitor. Please notify as additional nutrition concerns arise. Thank you. Addendum: 05/12/20 at [address] Amended: Links added.
[2020-05-12] MEDS ORDERED: MAGNESIUM OXIDE 400 MG TABLET PO ONE (20:11)
[2020-05-12] MEDS: LEVOFLOXACIN 750 MG/D5W 150 ML 150 ML IV SCH (20:14)
[2020-05-12] MEDS: GABAPENTIN 300 MG CAPSULE PO SCH (20:14)
[2020-05-12] MEDS: INSULIN GLARGINE 100 UNITS/ML 10 ML VIAL SQ SCH (20:16)
[2020-05-13] MEDS: ACETAMINOPHEN EXTRA STRENGTH 500 MG TABLET PO SCH ×3 (02:06→18:30)
[2020-05-13 04:03] VITALS: BP 113/69
[2020-05-13 05:27] LABS: EOSINOPHILS % (AUTO) 2.1 % (0.0-8.0); HEMATOCRIT 26.1 % (36-48); LYMPHOCYTES % (AUTO) 28.7 % (21.0-51.0); MEAN CORPUSCULAR HEMOGLOBIN 26.6 pg (27.0-33.0); MEAN CORPUSCULAR VOLUME 85.9 fL (79-99); MONOCYTES % (AUTO) 10.2 % (3.0-13.0); NEUTROPHILS % (AUTO) 56.6 % (40.0-77.0); NUCLEATED RED BLOOD CELLS 0.3 % (0.0-0.19); PLATELET COUNT (AUTO) 247 K/uL (130-400); RED BLOOD CELL COUNT(AUTO) 3.04 MIL/uL (4.00-5.50); RED CELL DISTRIBUTION WIDTH 15.5 % (11.0-15.5); WHITE BLOOD COUNT (AUTO) 8.9 K/uL (4.8-10.8)
[2020-05-13 05:41] LABS: CREATININE 0.7 mg/dL (0.5-1.5); MAGNESIUM 1.4 mg/dL (1.80-2.40); POTASSIUM 4.4 mmol/L (3.5-5.1)
[2020-05-13] MEDS: LEVOTHYROXINE 50 MCG TABLET PO SCH (06:06)
[2020-05-13] MEDS: MAGNESIUM 2GM PREMIX 50ML 50 ML IV PRN ×2 (06:07→15:22)
[2020-05-13] MEDS: INSULIN HUMULIN R 100 UNIT/ML 3ML SQ SCH ×6 (06:08→17:00)
[2020-05-13 08:00] VITALS: BP 93/60
[2020-05-13] MEDS: NYSTATIN-TRIAMCINOLONE CREAM 15 GM TP SCH (09:00)
--- NOTE | 2020-05-13 10:55 | NUR ---
DISCUSSED DC WITH MD, DC ORDERS WRITTEN FOR LAST NIGHT, BUT NO FAMILY CAME TO GET PATIENT AND NOW PATIENT TELLS HIM THAT SHE HAS NO ELECTRICITY IN HER HOME UNTIL TODAY AND MAY HAVE TO STAY LONGER. AVOIDABLE DAY PLACED. SOCIAL SERVICE CONSULT Addendum: 05/13/20 at 1057 by PORFIRIO WHITLOCK RN CM Amended: Links added.
[2020-05-13] MEDS: FAMOTIDINE 20MG TAB 20 MG TAB PO SCH (11:19)
[2020-05-13] MEDS: ASCORBIC ACID 500 MG TAB PO SCH (11:20)
[2020-05-13] MEDS: ZINC SULFATE 220 CAPSULE PO SCH (11:20)
[2020-05-13] MEDS: DULOXETINE HCL 30 MG CAP PO SCH (11:20)
[2020-05-13] MEDS: Vitamin B Complex/Vit C/Folic Acid PO SCH (11:20)
[2020-05-13] MEDS: THIAMINE HCL 100 MG/ML 2ML VIAL IVP SCH (11:20)
[2020-05-13] MEDS: DRONABINOL 2.5 MG CAP PO SCH (11:20)
[2020-05-13] MEDS: ENOXAPARIN SODIUM 30 MG/0.3 ML SQ SCH (11:21)
[2020-05-13 12:00] VITALS: BP 101/63
[2020-05-13] MEDS: LEVOFLOXACIN 750 MG/D5W 150 ML 150 ML IV SCH (13:05)
--- NOTE | 2020-05-13 15:00 | NUR ---
REAGAN---Consult to contact [facility], no electricity----pt. was amputation this admission. [phone] visited pt. who reports that she resides at home, son resides with her and she and spouse have an on/off relationship. Pt. states that she did inform nursing staff that her home has no electricity at this time; water reportedly connected. SW contacted pt's dtr. Poornima [phone] who verifies that power is disconnected due to non payment and that she attempted contact with [place] however, was not given information as she is not the account yen. SW asked pt. to contact Marcelo Mason and she spoke w/traveling sales representative, then passed call to this worker. Night Cleaner inquired if possibility of extension and it is denied requiring full payment for christianity; pt. made aware. Pt's dtr and son in law Alon Le phoned back and they are taking her to another home that she owns on [address] where they stay when they are in town as they are truck drivers; all utilities are reportedly connected in that home. Dtr. and son in law obtaining a hospital bed for her and that she already has a wheelchair and rolling walker. Pt.'s son Josue Zayas who is to care for pt. will be staying with her until power is restored then will return to her current home. This worker placed on speaker phone and pt's spouse stated that he is the one that called [facility] on pt. for self neglect and that Shaneka Bridges has his contact information. SW contacted [facility]PS and was informed that there is an open case to Shaneka Bridges [phone]. This worker phoned Shaneka, left a voicemail that pt. is being discharged home today with her dtr Poornima and ANTONIO Chi picking her up this evening provided Shaneka with dtr's contact information. Jordy GREGG made aware of DCP and also was provided with dtr's contact number. RACHEL Escoto made aware.
--- NOTE | 2020-05-13 15:41 | NUR ---
DISCUSSED SW CONSULT W DRY CURE WORKER AND CM DIRECTOR.
[2020-05-13 16:00] VITALS: BP 95/62
--- NOTE | 2020-05-13 19:49 | NUR ---
DISCHARGE INSTRUCTIONS GIVEN TO PATIENT AND DAUGHTER AT BEDSIDE. INSTRUCTED ON WOUND CARE, PROVIDED WITH SUPPLIES. MADE AWARE OF ALL NEW MEDICATIONS AND FOLLOW UP APPOINTMENTS. ALL QUESTIONS ANSWERED. IV AND TELE REMOVED. PATIENT AT THIS TIME DENIES ANY PAIN OR SHORTNESS OF BREATH OR PAIN. V/S STABLE. INSTRUCTED ON MONITORING BLOOD PRESSURE AT HOME. PATIENT WILL BE TAKEN HOME BY HER DAUGHTER
--- NOTE | 2020-05-16 16:36 | NUR ---
SW Follow UP NOTES Message received from pt's son in law Alon, stating that pt. has returned to her [place] [address]; electricity has been restored and hospital bed set up. APS--REAGAN contacted Shaneka Bridges and informed of above; provided Alon's tel#[phone]. Per Shaneka/OCTAVIO, she will follow up with pt. this week.
== END 2020-05-13 20:07 | disposition home or self-care (01) | DRG 853 ==
LOC: EDH 15:15 → OBSVTOIN 15:16 → EDHIP 15:16 → INTOOBSV 15:16 → 4BH 18:25
PROVIDERS: ADMIT Hospitalist; ATTEND Hospitalist
PROC: 0QBP0ZZ Excision of Left Metatarsal, Open Approach (ICD-10-PCS; 2020-05-04)
PROC: 0Y6J0Z1 Detachment at Left Lower Leg, High, Open Approach (ICD-10-PCS; principal; 2020-05-07 08:45)
DX: A41.50 Gram-negative sepsis, unspecified (principal); E43 Unspecified severe protein-calorie malnutrition; A48.0 Gas gangrene; M72.6 Necrotizing fasciitis; E87.1 Hypo-osmolality and hyponatremia; E87.3 Alkalosis; M86.9 Osteomyelitis, unspecified; N39.0 Urinary tract infection, site not specified; N17.9 Acute kidney failure, unspecified; E11.52 Type 2 diabetes mellitus with diabetic peripheral angiopathy with gangrene; L02.31 Cutaneous abscess of buttock; L02.416 Cutaneous abscess of left lower limb; L03.116 Cellulitis of left lower limb; R64 Cachexia; E11.65 Type 2 diabetes mellitus with hyperglycemia; E87.6 Hypokalemia; D72.829 Elevated white blood cell count, unspecified; D64.9 Anemia, unspecified; E03.9 Hypothyroidism, unspecified; E11.40 Type 2 diabetes mellitus with diabetic neuropathy, unspecified; E11.621 Type 2 diabetes mellitus with foot ulcer; E11.69 Type 2 diabetes mellitus with other specified complication; E55.9 Vitamin D deficiency, unspecified; E78.5 Hyperlipidemia, unspecified; E87.8 Other disorders of electrolyte and fluid balance, not elsewhere classified; I10 Essential (primary) hypertension; K21.9 Gastro-esophageal reflux disease without esophagitis; L97.529 Non-pressure chronic ulcer of other part of left foot with unspecified severity; Z91.19 Patient's noncompliance with other medical treatment and regimen
CPT/HCPCS: 36415; 71045; 73630; 73718; 75635; 80048; 80053; 80202; 81001; 82306; 82550; 82948; 83605; 83735; 83874; 84100; 84132; 84145; 84443; 84484; 85025; 85027; 85610; 85651; 85730; 86140; 86900; 86901; 87040; 87070; 87076; 87077; 87088; 87186; 93005; 93306; 93356; 93925; 97039; G0378; J1650; J1815; J1956; J2250; J2405; J2543; J2704; J2795; J3370; J3411; J3475; J3480; J3490; J7030; J7050; Q0167; Q9967